=== PATIENT | female | born 1945 | race Caucasian/White ===

== ENCOUNTER 2022-05-06 19:16 | Inpatient (IN) | payer MEDICARE, OTHER ==
[~2022-05-06] VITALS: Ht 165.1 cm; Wt 75.0 kg
[2022-05-06 20:05] LABS: HEMOGLOBIN 9.7 gm/dl (12.3-15.3); RED BLOOD COUNT 3.44 M/UL (4.00-5.10)
[2022-05-07 02:26] LABS: HEMOGLOBIN 9.4 gm/dl (12.3-15.3); RED BLOOD COUNT 3.31 M/UL (4.00-5.10); WHITE BLOOD COUNT 7.6 K/UL (4.5-11.0)
[2022-05-07 02:57] LABS: BUN/CREATININE RATIO 20 (0-10)
[2022-05-07] MEDS ORDERED: REPATHA SY140 MG/1 M SQ (10:36)
[2022-05-07] MEDS ORDERED: ESCITALOPRAM OX10 MG PO (10:36)
[2022-05-07] MEDS ORDERED: ONDANSETRON HCL8 MG PO (10:37)
[2022-05-07] MEDS ORDERED: ATENOLOL25 MG PO (10:37)
[2022-05-07] MEDS ORDERED: LISINOPRIL5 MG PO (10:37)
[2022-05-08 02:25] LABS: HEMOGLOBIN 9.7 gm/dl (12.3-15.3); RED BLOOD COUNT 3.49 M/UL (4.00-5.10); WHITE BLOOD COUNT 8.8 K/UL (4.5-11.0)
[2022-05-08 03:23] LABS: BUN/CREATININE RATIO 16 (0-10)
[2022-05-08] MEDS ORDERED: ASPIRIN EC81 MG PO (16:32)
[2022-05-08] MEDS ORDERED: FLORANEX GRANU1 EACH PO (16:32)
[2022-05-08] MEDS ORDERED: BRILINTA 90 MG90 MG PO (16:32)
[2022-05-08] MEDS ORDERED: LOPRESSOR 25 MG25 MG PO (16:32)
== END 2022-05-08 18:29 | disposition home or self-care (01) | DRG 247 ==
LOC: PROG CARE 19:16
PROVIDERS: ADMIT Internal Medicine Infectious Disease
PROC: 4A023N7 Measurement of Cardiac Sampling and Pressure, Left Heart, Percutaneous Approach (ICD-10-PCS; principal; 2022-05-07)
PROC: 027034Z Dilation of Coronary Artery, One Artery with Drug-eluting Intraluminal Device, Percutaneous Approach (ICD-10-PCS; 2022-05-07)
PROC: 027035Z Dilation of Coronary Artery, One Artery with Two Drug-eluting Intraluminal Devices, Percutaneous Approach (ICD-10-PCS; 2022-05-07)
PROC: B2111ZZ Fluoroscopy of Multiple Coronary Arteries using Low Osmolar Contrast (ICD-10-PCS; 2022-05-07)
PROC: B24BZZZ Ultrasonography of Heart with Aorta (ICD-10-PCS; 2022-05-08)
DX: I21.4 Non-ST elevation (NSTEMI) myocardial infarction (principal); I97.89 Other postprocedural complications and disorders of the circulatory system, not elsewhere classified; A08.4 Viral intestinal infection, unspecified; E87.6 Hypokalemia; E27.9 Disorder of adrenal gland, unspecified; I10 Essential (primary) hypertension; I25.10 Atherosclerotic heart disease of native coronary artery without angina pectoris; Z96.642 Presence of left artificial hip joint; E78.5 Hyperlipidemia, unspecified; Z20.822 Contact with and (suspected) exposure to COVID-19; Z96.611 Presence of right artificial shoulder joint; D64.9 Anemia, unspecified; I08.0 Rheumatic disorders of both mitral and aortic valves; Z82.49 Family history of ischemic heart disease and other diseases of the circulatory system; Z95.4 Presence of other heart-valve replacement; Z95.1 Presence of aortocoronary bypass graft; Z98.890 Other specified postprocedural states; Z95.5 Presence of coronary angioplasty implant and graft; Z90.710 Acquired absence of both cervix and uterus; Z88.8 Allergy status to other drugs, medicaments and biological substances; Z79.899 Other long term (current) drug therapy; Z85.3 Personal history of malignant neoplasm of breast; Z98.51 Tubal ligation status; Z91.048 Other nonmedicinal substance allergy status
CPT/HCPCS: ECHO; 36415; 71045; 80053; 80061; 82550; 82553; 82962; 83735; 84484; 85025; 85347; 85610; 85730; 87449; 92978; 93005; 93306; 99152; 99153; C1725; C1753; C1769; C1874; C1887; C1894; C9600; J0360; J0461; J1644; J2250; J3010; J7040; Q9967